=== PATIENT | female | born 1930 | race Native Hawaiian/Other Pacific Islander ===

== ENCOUNTER 2016-10-11 10:51 | Outpatient (CLI) | payer OTHER, MEDICARE | END 2016-10-11 19:38 | disposition home or self-care (01) | LOC: LABW 10:51 | PROVIDERS: Internal Medicine Interventional Cardiology | DX: E78.00 Pure hypercholesterolemia, unspecified (principal); Z79.899 Other long term (current) drug therapy; Z51.81 Encounter for therapeutic drug level monitoring | CPT/HCPCS: 36415; 80061; 80076 ==

== ENCOUNTER 2018-04-11 11:09 | Outpatient (CLI) | payer OTHER, MEDICARE | END 2018-04-11 22:10 | disposition home or self-care (01) | LOC: RAD 11:09 | DX: R07.81 Pleurodynia (principal); R06.09 Other forms of dyspnea; M54.6 Pain in thoracic spine ==

== ENCOUNTER 2019-07-21 17:31 | Observation (INO) | payer OTHER, MEDICARE ==
[2019-07-21] VITALS (8 sets, daily range): BP systolic 131–204; BP diastolic 41–60; TEMP 97.6–98.5; Ht 152.4 cm; Wt 47.4 kg
[~2019-07-21] VITALS: Ht 152.4 cm; Wt 47.4 kg
[2019-07-21 18:31] LABS: PLATELET COUNT 141 K/uL (152-353)
[2019-07-21 18:41] LABS: POTASSIUM 4.8 mmol/L (3.6-5.2); SODIUM 140 mmol/L (136-145)
[2019-07-22] VITALS: BP 141/46; TEMP 98.4
[2019-07-22] MEDS ORDERED: TOVIAZ4 MG PO (00:17)
[2019-07-22] MEDS ORDERED: CELEBREX200 MG PO (00:17)
[2019-07-22] MEDS ORDERED: LIPITOR40 MG PO (00:18)
[2019-07-22] MEDS ORDERED: METO50TA27 PO (00:19)
[2019-07-22] MEDS ORDERED: TRAMADOL HYDROC50 MG PO (00:20)
[2019-07-22] MEDS ORDERED: ONDA4TAB3 PO (00:21)
[2019-07-22] MEDS ORDERED: DONE5TAB PO (00:22)
[2019-07-22] MEDS ORDERED: INDOMETHACIN50 MG PO (00:22)
[2019-07-22] MEDS ORDERED: NAMENDA5 MG PO (00:24)
[2019-07-22] MEDS ORDERED: CALCIUM PO (00:28)
[2019-07-22] MEDS ORDERED: [UNRECOGNIZED DRUG - OTHER] PO (00:28)
[2019-07-22 04:00] VITALS: BP 145/33; TEMP 98.8
[2019-07-22 08:33] VITALS: BP 132/38; TEMP 98.6
[2019-07-22 12:14] VITALS: BP 142/40; TEMP 98.2
[2019-07-22 15:40] LABS: PLATELET COUNT 133 K/uL (152-353)
[2019-07-22 15:51] LABS: POTASSIUM 4.1 mmol/L (3.6-5.2)
[2019-07-22 16:09] VITALS: BP 192/79; TEMP 97.7
[2019-07-22 19:48] VITALS: BP 128/44; TEMP 97.8
[2019-07-23] VITALS: BP 107/85; TEMP 97.6
[2019-07-23 04:00] VITALS: BP 136/46; TEMP 98
[2019-07-23 05:43] LABS: PLATELET COUNT 143 K/uL (152-353)
[2019-07-23 12:02] VITALS: BP 153/45; TEMP 97.5
== END 2019-07-23 12:00 | disposition home or self-care (01) ==
LOC: ED 17:31 → MED/SURG 19:30
PROVIDERS: Emergency Medicine; ADMIT Internal Medicine
DX: R55 Syncope and collapse (principal); R00.1 Bradycardia, unspecified; I10 Essential (primary) hypertension; M13.89 Other specified arthritis, multiple sites; R41.3 Other amnesia
CPT/HCPCS: 36415; 80048; 80053; 82550; 83036; 83735; 83880; 84484; 85027; 93005; 94760; 96361; 96366; 96374; 96375; 99220; 99284; G0378; J1940; J2405

== ENCOUNTER 2019-09-04 14:57 | Outpatient (CLI) | payer OTHER, MEDICARE ==
[~2019-09-04 14:57] MED LIST: CALCIUM PO; CELEBREX200 MG PO; DONE5TAB PO; INDOMETHACIN50 MG PO; LIPITOR40 MG PO; METO50TA27 PO; NAMENDA5 MG PO; ONDA4TAB3 PO; TOVIAZ4 MG PO; TRAMADOL HYDROC50 MG PO; [UNRECOGNIZED DRUG - OTHER] PO
== END 2019-09-04 19:38 | disposition home or self-care (01) ==
LOC: RESP 14:57
DX: I10 Essential (primary) hypertension (principal); Z91.89 Other specified personal risk factors, not elsewhere classified; R53.83 Other fatigue; R01.2 Other cardiac sounds
CPT/HCPCS: 93306

== ENCOUNTER 2019-09-16 09:18 | Outpatient (CLI) | payer OTHER, MEDICARE | END 2019-09-16 19:46 | disposition home or self-care (01) | LOC: NM 09:18 | DX: I10 Essential (primary) hypertension (principal); Z91.89 Other specified personal risk factors, not elsewhere classified; R53.83 Other fatigue; R01.2 Other cardiac sounds | CPT/HCPCS: A9500; J2785 ==

== ENCOUNTER 2020-04-19 16:42 | Emergency (ER) | payer OTHER, MEDICARE ==
[~2020-04-19] VITALS: Ht 165.1 cm; Wt 49.9 kg
[2020-04-19 17:57] LABS: PLATELET COUNT 243 K/uL (152-353); POTASSIUM 4.1 mmol/L (3.6-5.2); SODIUM 137 mmol/L (136-145)
[2020-04-19 18:04] LABS: PARTIAL THROMBOPLASTIN TIME 24.6 SECONDS (24.5-33.6)
[2020-04-19 20:15] VITALS: BP 162/54; TEMP 98.3
== END 2020-04-19 22:28 | disposition home or self-care (01) ==
LOC: ED 16:42
PROVIDERS: Hospitalist
DX: J44.9 Chronic obstructive pulmonary disease, unspecified (principal); J06.9 Acute upper respiratory infection, unspecified; R06.02 Shortness of breath; K44.9 Diaphragmatic hernia without obstruction or gangrene
CPT/HCPCS: 36415; 36600; 80053; 82550; 82805; 83880; 84484; 85027; 85610; 85730; 93005; 96374; 96375; 99284; J1100

== ENCOUNTER 2020-06-15 16:06 | Outpatient (CLI) | payer OTHER, MEDICARE | END 2020-06-15 19:17 | disposition home or self-care (01) | LOC: RAD 16:06 | PROVIDERS: ATTEND Nurse Practitioner Family | DX: R06.2 Wheezing (principal) ==

== ENCOUNTER 2021-01-05 10:22 | Day surgery (SDC) | payer OTHER, MEDICARE ==
[2020-12-30 14:26] LABS: POTASSIUM 4.9 mmol/L (3.6-5.2)
[2020-12-30 14:31] LABS: PLATELET COUNT 213 K/uL (152-353)
[~2021-01-05] VITALS: Ht 30.5 cm; Wt 0.5 kg
== END 2021-01-05 13:26 | disposition home or self-care (01) ==
LOC: OR 10:22
PROVIDERS: ATTEND Internal Medicine Gastroenterology
PROC: 0DB68ZZ Excision of Stomach, Via Natural or Artificial Opening Endoscopic (ICD-10-PCS; principal; 2021-01-05)
PROC: 0D738ZZ Dilation of Lower Esophagus, Via Natural or Artificial Opening Endoscopic (ICD-10-PCS; 2021-01-05)
DX: K44.9 Diaphragmatic hernia without obstruction or gangrene (principal); K22.2 Esophageal obstruction; K29.50 Unspecified chronic gastritis without bleeding; B96.81 Helicobacter pylori [H. pylori] as the cause of diseases classified elsewhere; K21.00 Gastro-esophageal reflux disease with esophagitis, without bleeding; Z20.822 Contact with and (suspected) exposure to COVID-19
CPT/HCPCS: 80053; 85027; 87635; J2001; J2704; U0003

== ENCOUNTER 2021-05-16 15:44 | Outpatient (CLI) | payer OTHER, MEDICARE | END 2021-05-16 19:14 | disposition home or self-care (01) | LOC: US 15:44 | PROVIDERS: ATTEND Nurse Practitioner Family | DX: M79.662 Pain in left lower leg (principal); M79.89 Other specified soft tissue disorders ==

== ENCOUNTER 2021-10-17 10:19 | Outpatient (CLI) | payer OTHER, MEDICARE ==
[2021-10-17 17:12] LABS: PLATELET COUNT 197 K/uL (152-353)
[2021-10-17 17:29] LABS: POTASSIUM 4.3 mmol/L (3.6-5.2)
== END 2021-10-17 18:56 | disposition home or self-care (01) ==
LOC: LAB 10:19 → RAD 10:19
PROVIDERS: ATTEND Nurse Practitioner Family
DX: J44.9 Chronic obstructive pulmonary disease, unspecified (principal); F03.90 Unspecified dementia, unspecified severity, without behavioral disturbance, psychotic disturbance, mood disturbance, and anxiety; I10 Essential (primary) hypertension; J44.1 Chronic obstructive pulmonary disease with (acute) exacerbation; N32.81 Overactive bladder; M25.50 Pain in unspecified joint; R73.09 Other abnormal glucose; E03.8 Other specified hypothyroidism; E78.49 Other hyperlipidemia
CPT/HCPCS: 80053; 80061; 82306; 82607; 83036; 84439; 84443; 85027

== ENCOUNTER 2022-01-16 18:49 | Outpatient (CLI) | payer OTHER, MEDICARE | END 2022-01-16 19:54 | disposition home or self-care (01) | LOC: RAD 18:49 | PROVIDERS: ATTEND Internal Medicine | DX: M25.561 Pain in right knee (principal); M19.90 Unspecified osteoarthritis, unspecified site; M25.50 Pain in unspecified joint ==